=== PATIENT | female | born 1980 | race Caucasian/White ===

== ENCOUNTER 2023-01-10 12:12 | Emergency (ER) | payer OTHER ==
[~2023-01-10] VITALS: Ht 170.2 cm; Wt 95.2 kg
[2023-01-10 12:43] VITALS: BP 160/102
[2023-01-10] MEDS ORDERED: Norco 5-325 Ta1 EACH PO (15:38)
== END 2023-01-10 15:53 | disposition home or self-care (01) ==
LOC: ER 12:12
DX: M25.551 Pain in right hip (principal); F17.200 Nicotine dependence, unspecified, uncomplicated
CPT/HCPCS: 72170; 72192; 99283-25; A9270

== ENCOUNTER → 2025-07-11 | Outpatient (CLI) | payer OTHER ==
[~2025-07-11] MED LIST: Norco 5-325 Ta1 EACH PO
[2025-07-11 15:49] LABS: Bacterial Vaginosis PCR Negative (NEGATIVE); Candida Group, PCR NOT DETECTED (NOT DETECT)
[2025-07-11 15:59] LABS: Candida glabrata-krusei, PCR DETECTED (NOT DETECT)
== END ==
LOC: LAB SHORT 11:06 → LAB 11:06
PROVIDERS: Family Medicine
DX: N76.0 Acute vaginitis (principal)
CPT/HCPCS: 81515